=== PATIENT | male | born 1980 | race Hispanic/Latino ===

== ENCOUNTER 2021-04-14 18:02 | Emergency (ER) | payer OTHER, SELFPAY ==
[2021-04-14] MEDS ORDERED: Ondansetron PF 4 MG/2 ML Vial ONE (18:14)
[2021-04-14] MEDS ORDERED: Morphine 4 MG/ML VIAL ONE (18:14)
== END 2021-04-14 20:29 | disposition home or self-care (01) ==
LOC: ERS 18:02
DX: S42.034A Nondisplaced fracture of lateral end of right clavicle, initial encounter for closed fracture (principal); S43.101A Unspecified dislocation of right acromioclavicular joint, initial encounter; V89.2XXA Person injured in unspecified motor-vehicle accident, traffic, initial encounter
CPT/HCPCS: 70450; 71045; 96374; 96375; 96376; J2270; J2405